=== PATIENT | female | born 1945 | race Caucasian/White ===

== ENCOUNTER 2023-08-15 18:08 | Inpatient (IN) ==
[2023-08-15] MEDS: 0.9 % SODIUM CHLORIDE 1,000 ML IV ONE (18:36)
[2023-08-15 18:55] LABS: Basophils # (Auto) 0.02 K/mcL (0.00-0.30); Basophils % (Auto) 0.2 % (0.0-2.0); Eosinophils # (Auto) 0.11 K/mcL (0.00-0.70); Eosinophils % (Auto) 1.2 % (0.0-7.0); Hematocrit 40.7 % (34.1-44.9); Hemoglobin 12.9 g/dL (11.2-15.7); Lymphocytes # (Auto) 3.24 K/mcL (1.50-4.80); Lymphocytes % (Auto) 35.3 % (15.5-49.0); Mean Cell Volume 94.7 fL (80.0-100.0); Mean Corpuscular HGB Conc 31.7 g/dL (31.0-36.0); Mean Platelet Volume 10.7 fL (8.8-12.5); Monocytes # (Auto) 0.94 K/mcL (0.10-0.90); Monocytes % (Auto) 10.2 % (1.0-12.0); Neutrophils % (Auto) 52.9 % (38.0-78.0); Platelet Count 291 K/mcL (140-440); Red Cell Distribution Width 13.2 % (11.5-14.5); WBC 9.2 K/mcL (4.5-11.0)
[2023-08-15 19:11] LABS: ALT/SGPT 8 U/L (<40); AST/SGOT 25 U/L (<32); Albumin 3.9 gm/dL (3.2-5.2); Albumin/Globulin Ratio 1.3 (1.0-2.3); Alkaline Phosphatase 87 U/L (39-117); Bilirubin,Total < 0.2 mg/dL (0.1-1.0); Blood Urea Nitrogen 26 mg/dL (8-23); Calcium 9.2 mg/dL (8.6-10.4); Carbon Dioxide 26 mmol/L (22-30); Chloride 100 mmol/L (96-108); Globulin 2.9 gm/dL (2.2-3.7); Glomerular Filtration Rate 40; Glucose 90 mg/dL (70-105)
[2023-08-15 19:36] LABS: Thyroid Stimulating Hormone 1.08 uIU/mL (0.27-5.01)
[2023-08-15 19:52] LABS: INR 0.9 (0.9-1.1); Prothrombin Time 13.1 sec (11.9-14.5)
[2023-08-16] MEDS ORDERED: LACTULOSE 20 GM/30 ML ORAL.SOL PO PRN (00:21)
[2023-08-16] MEDS ORDERED: ONDANSETRON 4 MG/2 ML VIAL IV PRN (00:21)
[2023-08-16] MEDS: ACETAMINOPHEN 325 MG TABLET PO PRN (01:04)
[2023-08-16] MEDS: ACETAMINOPHEN 325 MG TABLET PO ONE (01:05)
[2023-08-16] MEDS: 0.9 % SODIUM CHLORIDE 10 ML SYRINGE IV SCH (05:07)
[2023-08-16 07:42] LABS: Blood Urea Nitrogen 17 mg/dL (8-23); Calcium 8.7 mg/dL (8.6-10.4); Carbon Dioxide 25 mmol/L (22-30); Chloride 105 mmol/L (96-108); Glomerular Filtration Rate 71; Glucose 128 mg/dL (70-105)
[2023-08-16 09:19] LABS: Appearance,Urine Clear (Clear); Bilirubin,Urine Negative (Negative); Color,Urine Yellow; Culture Indicated,Urine No; Glucose,Urine (UA) Negative (Negative); Ketones,Urine Negative (Negative); Leukocyte Esterase,Urine Negative /uL (Negative); Nitrate,Urine Negative (Negative); Protein,Urine Negative (Negative); Urine Blood Negative ery/mcL (Negative); Urobilinogen,Urine Normal
[2023-08-16] MEDS ORDERED: GABAPENTIN 100 MG CAPSULE PO PRN (13:28)
[2023-08-16] MEDS ORDERED: METOPROLOL TARTRATE 5 MG/5 ML VIAL IV PRN (13:30)
[2023-08-16] MEDS: traMADol 50 MG TABLET PO PRN (15:51)
[2023-08-16] MEDS: ENALAPRILAT 1.25 MG/ML VIAL IV PRN (19:27)
[2023-08-16] MEDS: SENNOSIDES 1 TABLET PO PRN (22:10)
[2023-08-17 06:36] LABS: ALT/SGPT 12 U/L (<40); AST/SGOT 21 U/L (<32); Albumin 3.6 gm/dL (3.2-5.2); Albumin/Globulin Ratio 1.3 (1.0-2.3); Alkaline Phosphatase 78 U/L (39-117); Bilirubin,Direct < 0.2 mg/dL (0-0.3); Bilirubin,Total 0.4 mg/dL (0.1-1.0); Blood Urea Nitrogen 17 mg/dL (8-23); Calcium 8.7 mg/dL (8.6-10.4); Carbon Dioxide 25 mmol/L (22-30); Chloride 105 mmol/L (96-108); Globulin 2.7 gm/dL (2.2-3.7); Glomerular Filtration Rate 71; Glucose 100 mg/dL (70-105); Lactate Dehydrogenase 148 U/L (135-225); Phosphorous 3.2 mg/dL (2.5-4.5); Triglycerides 113 mg/dL (<150); Uric Acid 5.1 mg/dL (2.5-8.0)
[2023-08-17] MEDS: LEVOTHYROXINE SODIUM 112 MCG TABLET PO SCH (07:56)
[2023-08-17] MEDS: POLYETHYLENE GLYCOL 3350 17 GM PACKET PO SCH (09:04)
[2023-08-17] MEDS: LORazepam 2 MG/ML VIAL IV ONE (10:12)
[2023-08-17] MEDS: ENOXAPARIN 40 MG/0.4 ML SYRINGE SQ SCH (10:12)
[2023-08-17] MEDS: POTASSIUM CHLORIDE 20 MEQ TABLET PO ONE (10:17)
[2023-08-17] MEDS: CARVEDILOL 3.125 MG TABLET PO SCH (16:31)
[2023-08-17] MEDS ORDERED: CARVEDILOL 3.125 MG TABLET PO SCH (21:00)
[2023-08-18] MEDS: LORazepam 2 MG/ML VIAL IV PRN (00:06)
[2023-08-18 06:57] LABS: Blood Urea Nitrogen 20 mg/dL (8-23); Calcium 8.8 mg/dL (8.6-10.4); Carbon Dioxide 24 mmol/L (22-30); Chloride 106 mmol/L (96-108); Glomerular Filtration Rate 71; Glucose 85 mg/dL (70-105)
[2023-08-18] MEDS: CARVEDILOL 3.125 MG TABLET PO ONE (08:10)
[2023-08-18] MEDS: CARVEDILOL 3.125 MG TABLET PO SCH (16:36)
[2023-08-19] MEDS: LISINOPRIL 5 MG TABLET PO SCH (08:26)
== END 2023-08-19 12:55 | disposition home or self-care (01) | DRG 309 ==
LOC: ED 18:08 → ICU 08-16 00:04
PROVIDERS: ADMIT Internal Medicine; ATTEND Internal Medicine